=== PATIENT | male | born 1945 | race Hispanic/Latino ===

== ENCOUNTER 2018-07-14 12:07 | Emergency (ER) | payer MEDICARE ==
[2018-07-14 12:08] VITALS: BMI 30.9
[2018-07-14 12:38] VITALS: RESP 18
[2018-07-14] MEDS ORDERED: Sodium Chloride 0.9% 1,000 ML IV STA (13:03)
--- NOTE | 2018-07-14 13:07 | ED PDOC ---
Arrival/HPI - General Historian: Patient - History of Present Illness Time/Duration: Prior to Arrival Symptom Onset: Sudden Symptom Course: Unchanged Activities at Onset: Rest <Deepak Foss - Last Filed: 07/14/18 15:21> <Julio Srivastava - Last Filed: 07/14/18 18:27> - General Chief Complaint: Abnormal Labs Time Seen by Provider: 07/14/18 12:25 - History of Present Illness Narrative History of Present Illness (Text): 07/14/18 13:04 Patient is a 73 year old male with PMH of metastatic prostate CA and cataracts who presents to Emergency department from Dr. Diego's office for abnormal labs. Per Dr. Diego his calcium measured in the office was 16.0. According to patient, they also performed an EKG at his office which was abnormal. Currently, he is asymptomatic and denies fever, chills, CP, SOB, cough, dysuria, frequency, hematuria, psychiatric concerns or any other symptoms. (Deepak Foss) Past Medical History - Provider Review Nursing Documentation Reviewed: Yes - Travel History Have you recently traveled outside [place] w/in the past 3 mons?: No - Infectious Disease Hx of Infectious Diseases: None - Cardiac Hx Cardiac Disorders: No Hx Pacemaker: No - Pulmonary Hx Respiratory Disorders: No - Neurological Hx Paralysis: Yes - Hematological/Oncological Hx Blood Transfusion Reaction: No - Musculoskeletal/Rheumatological Hx Musculoskeletal Disorders: No - Genitourinary/Gynecological Hx Prostate Cancer: Yes - Psychiatric Hx Emotional Abuse: No Hx Physical Abuse: No Hx Substance Use: No - Surgical History Other/Comment: prostate - Anesthesia Hx Anesthesia: Yes Hx Anesthesia Reactions: No - Suicidal Assessment Feels Threatened In Home Enviroment: No <Deepak Foss - Last Filed: 07/14/18 15:21> Family/Social History - Physician Review Nursing Documentation Reviewed: Yes Family/Social History: No Known Family HX Smoking Status: Unknown If Ever Smoked Hx Alcohol Use: Yes (ENJOYS BEERS ON OCCASION) Frequency of alcohol use: Socially Hx Substance Use: No <Deepak Foss - Last Filed: 07/14/18 15:21> Allergies/Home Meds <Deepak Foss - Last Filed: 07/14/18 15:21> <Julio Srivastava - Last Filed: 07/14/18 18:27> Allergies/Adverse Reactions: Allergies No Known Allergies Allergy (Verified 10/08/15 10:48) Home Medications: Home Meds Medication Instructions Recorded Confirmed Abiraterone Acetate [Zytiga] 1,000 mg PO DAILY 07/14/18 07/14/18 Prednisone [Ruby] 5 mg PO BID 07/14/18 07/14/18 Prostate Bone Health 07/14/18 Triamterene/Hydrochlorothiazid 1 cap PO DAILY 07/14/18 07/14/18 [Triamterene-Hydrochlorothiazide 25 mg-37.5 mg] Review of Systems - Physician Review All systems were reviewed & negative as marked: Yes - Review of Systems Constitutional: absent: Fatigue, Fevers Eyes: absent: Vision Changes ENT: absent: Hearing Changes, Sore Throat Respiratory: absent: SOB, Cough Cardiovascular: absent: Chest Pain, PENALOZA Gastrointestinal: absent: Abdominal Pain, Nausea, Vomiting Genitourinary Male: absent: Dysuria, Frequency, Hematuria, Urinary Output Changes Musculoskeletal: absent: Arthralgias Skin: absent: Rash Neurological: absent: Headache Endocrine: absent: Diaphoresis Hemo/Lymphatic: absent: Adenopathy Psychiatric: absent: Anxiety, Depression <Deepak Foss - Last Filed: 07/14/18 15:21> Physical Exam Vital Signs Reviewed: Yes Temperature: Afebrile Blood Pressure: Normal Pulse: Other (tachycardic initially, repeat HR 88) Respiratory Rate: Normal Appearance: Positive for: Well-Appearing, Non-Toxic Mental Status: Positive for: Alert and Oriented X 3 - Systems Exam Head: Present: Atraumatic, Normocephalic Pupils: Present: PERRL Extroacular Muscles: Present: EOMI Conjunctiva: Present: Normal Mouth: Present: Moist Mucous Membranes Pharnyx: Present: Normal. No: ERYTHEMA, EXUDATE Nose (External): Present: Atraumatic Neck: Present: Normal Range of Motion. No: JVD Respiratory/Chest: Present: Clear to Auscultation. No: Wheezes, Rales, Rhonchi Cardiovascular: Present: Tachycardic. No: Murmurs, Rub, Gallop Abdomen: No: Tenderness, Rebound, Guarding Upper Extremity: Present: Normal Inspection. No: Cyanosis, Edema Lower Extremity: Present: Normal Inspection. No: Edema Neurological: Present: Speech Normal Skin: Present: Warm, Dry Psychiatric: Present: Alert, Oriented x 3 <Deepak Foss - Last Filed: 07/14/18 15:21> Vital Signs Temp Pulse Resp BP Pulse Ox 07/14/18 16:33 98.3 F 76 18 137/78 96 07/14/18 16:31 98.3 F 76 18 138/76 97 07/14/18 13:37 88 18 123/99 H 97 07/14/18 12:34 97.2 F L 108 H 18 147/89 96 Medical Decision Making - Lab Interpretations I have reviewed the lab results: Yes Interpretation: Abnormal lab values (Ca of 10.7, far less than [address] Diego's office, Dr. Diego informed, all other labs normal) - EKG Interpretation Interpreted by ED Physician: Yes Type: 12 lead EKG Comparison: Com.w/previous EKG <Deepak Foss - Last Filed: 07/14/18 15:21> <Julio Srivastava - Last Filed: 07/14/18 18:27> ED Course and Treatment: 07/14/18 13:08 -Patient sent by Dr. Diego for Ca level of 16 -Patient currently asymptomatic -Will repeat Ca level with CMP and repeat EKG -Will also get CBC, Mg, Phos, CBC -Will start 1 L NS bolus 07/14/18 15:05 -Patient's Ca is 10.7 in ED -Patient currently asymptomatic -No EKG changes, all other labs normal -Discussed with Dr. Diego who agrees patient is stable for discharge (Deepak Foss) 07/14/18 16:19 pt seen with resident. sent in for hypercalemia in office. pt asymptoamtic. contrary to resident note, no ekg performed in office. pt decline complaints. ca 10.7. stable for dc. updated dr diego. (Julio Srivastava) - Lab Interpretations Lab Results: 07/14/18 14:15 07/14/18 14:15 Lab Results 07/14/18 14:15: Urine Color Yellow, Urine Appearance Clear, Urine pH 6.5, Ur Specific [place] 1.020, Urine Protein Negative, Urine Glucose (UA) Negative, Urine Ketones Negative, Urine Blood Negative, Urine Nitrate Negative, Urine Bilirubin Negative, Urine Urobilinogen 0.2, Ur Leukocyte Esterase Negative 07/14/18 14:15: Sodium 144, Potassium 4.3, Chloride 102, Carbon Dioxide 28, Anion Gap 19, BUN 19, Creatinine 0.9, Est GFR ( Amer) > 60, Est GFR (Non- Af Amer) > 60, Random Glucose 92, Calcium 10.7 H, Phosphorus 4.3, Magnesium 2.2 , Total Bilirubin 0.7, AST 53, ALT 38, Alkaline Phosphatase 97, Total Protein 8.5 H, Albumin 4.8, Globulin 3.7, Albumin/Globulin Ratio 1.3 07/14/18 14:15: PT 10.9, INR 0.96, APTT 26.6 07/14/18 14:15: WBC 8.8, RBC 4.48, Hgb 14.1, Hct 40.2 L, MCV 89.7, MCH 31.5, MCHC 35.1, RDW 13.8, Plt Count 206, MPV 9.3, Gran % 74.2 H, Lymph % (Auto) 19.8 L, [place] % (Auto) 5.1, Eos % (Auto) 0.6 L, Baso % (Auto) 0.3, Gran # 6.54 H, Lymph # (Auto) 1.8, [place] # (Auto) 0.5, Eos # (Auto) 0.1, Baso # (Auto) 0.03 - EKG Interpretation EKG Interpretation (Text): 07/14/18 15:13 Sinus rhythm, no arrythmia, with non specific T wave changes consistent with prior EKG (Deepak Foss) - Medication Orders Current Medication Orders: Discontinued Medications Sodium Chloride (Sodium Chloride 0.9%) 1,000 mls @ 999 mls/hr IV .Q1H1M STA Stop: 07/14/18 14:03 Last Admin: 07/14/18 14:31 Dose: 999 mls/hr eMAR Start Stop Document 07/14/18 14:31 (Rec: 07/14/18 14:[address] [email or web address]) Intravenous Solution Start Date 07/14/18 Start Time 14:31 <Deepak Foss - Last Filed: 07/14/18 15:21> - Scribe Statement The provider has reviewed the documentation as recorded by the Scribe <Julio Srivastava - Last Filed: 07/14/18 18:27> - Scribe Statement aMrty Brown Patient Seen With Resident: In agreement with resident note which contains more details about the patient. Patient was seen and evaluated with resident. Came up with plan and treatment together. (Julio Srivastava) Disposition/Present on Arrival - Present on Arrival Any Indicators Present on Arrival: No History of DVT/PE: No History of Uncontrolled Diabetes: No Urinary Catheter: No History of Decub. Ulcer: No History Surgical Site Infection Following: None - Disposition Have Diagnosis and Disposition been Completed?: Yes Disposition Time: 15:12 Patient Plan: Discharge <Deepak Foss - Last Filed: 07/14/18 15:21> <Julio Srivastava - Last Filed: 07/14/18 18:27> - Disposition Diagnosis: Hypercalcemia of malignancy, Abnormal laboratory test result Disposition: HOME/ ROUTINE Condition: GOOD Discharge Instructions (ExitCare): Hypercalcemia (DC) Referrals: Martínez Tyson MD [Primary Care Provider] - Follow up with primary Forms: Indig[employer] (Italian)
[2018-07-14 14:26] LABS: PH,URINE 6.5 (4.7-8.0); URINE BILIRUBIN NEGATIVE (NEGATIVE); URINE BLOOD NEGATIVE (NEGATIVE); URINE GLUCOSE (UA) NEGATIVE (NEGATIVE); URINE LEUKOCYTE ESTERASE NEGATIVE Leu/uL (NEGATIVE); URINE PROTEIN NEGATIVE mg/dL (<30 mg/dL); URINE UROBILINOGEN 0.2 E.U./dL (<1 E.U./dL)
[2018-07-14 14:28] LABS: URINE APPEARANCE CLEAR (CLEAR); URINE COLOR YELLOW (YELLOW)
[2018-07-14 14:34] LABS: INR 0.96; PARTIAL THROMBOPLASTIN TIME 26.6 Seconds (25.1-36.5); PROTHROMBIN TIME 10.9 SECONDS (9.4-12.5)
[2018-07-14 14:37] LABS: BASO # 0.03 K/mm3 (0.0-2.0); BASO % 0.3 % (0.0-3.0); EOS # 0.1 (0.0-0.7); EOS % 0.6 % (1.5-5.0); GRAN # 6.54 (1.4-6.5); GRAN % 74.2 % (50.0-68.0); HEMOGLOBIN 14.1 g/dL (14.0-18.0); LYMPH # 1.8 (1.2-3.4); LYMPH % 19.8 % (22.0-35.0); MEAN CELL VOLUME 89.7 fl (80.0-105.0); MEAN CORPUSCULAR HEMOGLOBIN 31.5 pg (25.0-35.0); MEAN CORPUSCULAR HGB CONC 35.1 g/dl (31.0-37.0); MEAN PLATELET VOLUME 9.3 fl (7.0-11.0); MONO # 0.5 (0.1-0.6); MONO % 5.1 % (1.0-6.0); RBC 4.48 10^6/uL (3.5-6.1); RED CELL DISTRIBUTION WIDTH 13.8 % (11.5-14.5); WHITE BLOOD COUNT 8.8 10^3/ul (4.5-11.0)
[2018-07-14 14:40] LABS: ALB/GLOB RATIO 1.3 (1.1-1.8); ALBUMIN 4.8 g/dL (3.0-4.8); ALT/SGPT 38 U/L (7-56); AST/SGOT 53 U/L (17-59); BLOOD UREA NITROGEN 19 mg/dL (7-21); CALCIUM 10.7 mg/dL (8.4-10.5); GFR AFRICAN-AMERICAN > 60; GFR NON-AFRICAN AMERICAN > 60
[2018-07-14 16:33] VITALS: PULSE 76; TEMP 98.3
[2018-07-14 16:35] VITALS: BP 137/78; O2SAT 96
--- NOTE | 2018-07-14 17:49 | CARD ---
APPROVED REPORT Date of service: 07/14/2018 EKG Measurement Heart [id number] <Conclusion> Sinus rhythm with marked sinus arrhythmia Possible Inferior infarct, age undetermined Abnormal ECG
== END 2018-07-14 16:10 | disposition home or self-care (01) ==
LOC: ED 12:07
DX: E83.52 Hypercalcemia (principal); R79.9 Abnormal finding of blood chemistry, unspecified
CPT/HCPCS: 80053; 81003; 83735; 84100; 85025; 85610; 85730; 93005; 99282; J7030